=== PATIENT | female | born 1955 | race Caucasian/White ===

== ENCOUNTER 2017-05-03 15:40 | Emergency (ER) | payer OTHER ==
[~2017-05-03] VITALS: Ht 157.5 cm; Wt 70.0 kg
[~2017-05-03 15:40] MED LIST: Z.0.NO CURRENT MEDS
[2017-05-03 15:42] VITALS: BP 192/90; PULSE 93; RESP 15; TEMP 98.4; O2SAT 98
--- NOTE | 2017-05-03 16:39 | PD ---
HPI . left leg pain for over 2 mts Chief Complaint: Musculoskeletal Complaint Time Seen by Provider: 16:38 Travel History International Travel<30 days: No Contact w/Intl Traveler<30days: No Traveled to known affect area: No History of Present Illness HPI 61-year-old female here with complaints of left leg pain extending from her groin to her knee for the past 2 months. Patient tells me that approximately 2 months ago here at the hospital she fell in the cafeteria, but did not report it to workers comp. She says that ever since then she's been experiencing some intermittent pain in her groin that shoots into her knee. She specifically reiterates to me that she does not want any type of pain medications. She even declines muscle relaxers. She had xrays done at her PCP and they were negative. She is requesting a MRI/CT or some other test. She is ambulatory. No bowel or bladder dysfunction. No saddle anesthesia. PFSH Past Medical History Cardiovascular Problems: Yes Diminished Hearing: No Menopausal: Yes Past Surgical History Cholecystectomy: Yes (1983) Social History Alcohol Use: No Tobacco Use: Yes (/ PPD X 36 YRS.) Allergies-Medications (Allergen,Severity, Reaction): Coded Allergies: ketorolac (Unverified Allergy, Mild, 04/01/17) secobarbital (Unverified Allergy, Mild, ITCHING AND NAUSEA AND VOMITING, ) Reported Meds & Prescriptions Reported Meds & Active Scripts Active Reported No Current Meds (Miscellaneous Medication) Misc Review of Systems General / Constitutional: No: Fever Eyes: No: Visual changes HENT: No: Headaches Cardiovascular: No: Chest Pain or Discomfort Respiratory: No: Shortness of Breath Gastrointestinal: No: Abdominal Pain Genitourinary: No: Dysuria Musculoskeletal: Positive: Pain (groin/left leg/knee) Skin: No Rash Neurologic: No: Weakness Psychiatric: No: Depression Endocrine: No: Polydipsia Hematologic/Lymphatic: No: Easy Bruising Physical Exam Narrative GENERAL: AAO x 3, no acute distress, Well-nourished, well-developed patient. SKIN: Warm and dry. No visible rashes or bruising. HEAD: Normocephalic and atraumatic. EYES: No scleral icterus. No injection or drainage. ENT: No nasal drainage noted. Mucous membranes pink. Airway patent. NECK: Supple, trachea midline. No JVD. CARDIOVASCULAR: Regular rate and rhythm without murmurs, gallops, or rubs. RESPIRATORY: Breath sounds equal bilaterally. No accessory muscle use. No rhonchi or rales. GASTROINTESTINAL: Abdomen soft, non-tender, nondistended. no rebound or guarding EXTREMITIES: No cyanosis or edema. FULL ROM b/l leg. Negative SLR. Negative Carole and Katelyn on the left knee. Extension and flexion normal on the left leg BACK: Nontender without obvious deformity. No CVA tenderness. No Step-off NEURO: CN II-12 intact, nurse leader strength normal b/l, UE and LE 5/5, no focal deficits PSYCH: AAO x 3, normal affect. Data Data Last Documented VS Vital Signs Date Time Temp Pulse Resp B/P (MAP) Pulse Ox O2 Delivery O2 Flow Rate FiO2 05/03/17 15:42 98.4 93 15 192/90 (124) 98 MDM Medical Decision Making Medical Screen Exam Complete: Yes Emergency Medical Condition: No Medical Record Reviewed: Yes Differential Diagnosis sciatica, lumbar radiculopathy, less likely cauda equina Narrative Course A medical screening exam was performed: At the time of evaluation the presenting medical condition was determined not to be of an emergent nature. The patient was given the option of receiving additional care, but declined. Patient was given options for additional community resources from which to obtain care. The Patient Has Been advised to seek medical attention for their presenting complaint. The patient has been advised to return to the ER at any time if an emergent condition develops. I offered treatment and she declined. She wants imaging and will f/u with PCP. Diagnosis Primary Impression: Encounter for medical screening examination Condition: Stable Grace Perdue May 03, 2017 16:39
== END 2017-05-03 16:58 | disposition left against medical advice (07) ==
LOC: NEPD 15:40
DX: M79.605 Pain in left leg (principal); M25.562 Pain in left knee; F17.200 Nicotine dependence, unspecified, uncomplicated; Z88.8 Allergy status to other drugs, medicaments and biological substances
CPT/HCPCS: 99281

== ENCOUNTER → 2017-06-26 | Day surgery (SDC) | payer OTHER ==
[~2017-06-26] MED LIST changes: +IOHEXOL 180 MG/ML 20 ML VIAL (for RAD DIAG) EPIDURAL ONE; +LIDOCAINE HCL 1% PF 30 ML VIAL EPIDURAL ONE; +LOSA100T PO; +MEPERIDINE HCL 25 MG/ML VIAL IV ONE; +METH40TA PO; +PROPOFOL 200 MG/20 ML AMP IV ONE; +TRIAMCINOLONE ACETONIDE 40 MG/ML VIAL NERV BLOCK ONE
--- NOTE | 2017-06-26 10:25 | M6 ---
cc: Madelaine YUSUF DATE 06/26/2017 DATE OF 1955 PROCEDURE PERFORMED Fluoroscopically guided left L3-4 transforaminal epidural steroid injections. PROCEDURE NOTE History and physical was completed and signed. Consent was signed. Procedure site was marked. Medications were listed and reconciled. Pain score was recorded. Allergies were noted. Time out was taken. Fluoroscopy time was recorded where applicable. Sedation was administered or directed by Dr. Yusuf. The patient was given oxygen. The patient was monitored by a registered nurse. Total procedure time was greater than 15 minutes. An IV was started, blood pressure cuff, pulse oximeter and EKG were applied. The patient was placed in the prone position on a Benjamin table, sedated with small amounts of Versed and propofol titrated to effect. Vital signs were monitored and remained stable throughout the procedure. The patient remained responsive throughout the procedure. The lumbar area was scrubbed with antimicrobial solution, prepped with 10% Betadine solution, and draped with sterile drapes. Fluoroscopy was used in both the AP and lateral projections to clearly visualize the left L3-4 neural foramen. Then a sterile 22-gauge, 3-1/2 inch Chiba needle was advanced under fluoroscopic guidance into the dorsal most aspect of the foramen. There was negative aspiration for blood or CSF. There was no reported paresthesias by the patient. There was no washout of 2 mL of Omnipaque. Then after waiting approximately 60 seconds, the patient was slowly given 3 mL of 1% Xylocaine, 3 mL of Omnipaque and 40 mg of Kenalog at that location. Following this, the patient was taken to the recovery room with stable vital signs, neurologically intact. MD CHINA Reich/JOSH /10:23 AM /10:25 AM
== END | disposition home or self-care (01) ==
LOC: PHSDC 08:38
PROVIDERS: ATTEND Pain Medicine Interventional Pain Medicine
DX: M54.5 Low back pain (principal)
CPT/HCPCS: 64483; 99152; J2175; J3301; Q9965